=== PATIENT | male | born 1995 | race African-American/Black ===

== ENCOUNTER 2018-07-02 12:01 | Emergency (ER) | payer OTHER ==
[~2018-07-02] VITALS: Ht 177.8 cm; Wt 81.7 kg
[~2018-07-02 12:01] MED LIST: FLEXERIL PO; NAPROSYN250 MG PO; VENTOLIN HFA 1818 GM
[2018-07-02 13:25] LABS: INFLUENZA A ANTIGEN None Detected (None Detect); INFLUENZA B ANTIGEN None Detected (None Detect)
[2018-07-02] MEDS ORDERED: ZPAK PO (13:27)
[2018-07-02] MEDS ORDERED: TESSALON PERLE100 MG PO (13:27)
[2018-07-02] MEDS ORDERED: PROMETHAZINE V120 ML PO (13:27)
[2018-07-02] MEDS ORDERED: PHENERGAN 25 MG25 M1 PO (13:30)
[2018-07-02] MEDS ORDERED: ACETAMINOPHEN-1 EAC1 PO (13:30)
[2018-07-02 13:42] VITALS: BP 113/74
== END 2018-07-02 13:42 | disposition home or self-care (01) ==
LOC: M.ERS 12:01
PROVIDERS: Physician Assistant
DX: J20.9 Acute bronchitis, unspecified (principal); J45.909 Unspecified asthma, uncomplicated